=== PATIENT | male | born 1960 | race Caucasian/White ===

== ENCOUNTER 2018-06-22 14:19 | Outpatient (REF) | payer MEDICAID, SELFPAY ==
[2018-06-24 09:14] LABS: Hepatitis C Ab w Rflx HCV PCR Negative (NEGAT)
[2018-06-24 09:23] LABS: Hepatitis B Surface Ag Negative (NEGAT)
[2018-06-24 09:46] LABS: HIV-1/2 Ag & Ab Screen Negative (NEGAT)
== END 2018-06-22 14:39 ==
LOC: NCHCN 14:19
PROVIDERS: PCP Family Medicine; Visit Provider Family Medicine
DX: F11.20 Opioid dependence, uncomplicated (principal); Z11.59 Encounter for screening for other viral diseases; Z11.4 Encounter for screening for human immunodeficiency virus [HIV]; I10 Essential (primary) hypertension
CPT/HCPCS: 80048; 86803; 87340; 87389

== ENCOUNTER 2018-06-24 12:39 | Outpatient (REF) | payer MEDICAID, SELFPAY ==
[2018-06-24 14:07] LABS: Anion Gap 7.4 mmol/L (3-11); BUN 12 mg/dL (7-18); CO2 29.6 mmol/L (21.0-32.0); CREATININE 0.87 mg/dL (0.70-1.30); Calcium 8.8 mg/dL (8.5-10.1); Chloride 99 mmol/L (98-107); Glucose 97 mg/dL (70-100); Potassium 4.3 mmol/L (3.5-5.1); Sodium 136 mmol/L (136-145)
[2018-06-27 12:42] LABS: Hepatitis B Surface Ag Negative (NEGAT)
[2018-06-27 13:11] LABS: HIV-1/2 Ag & Ab Screen Negative (NEGAT); Hepatitis C Ab w Rflx HCV PCR Negative (NEGAT)
== END 2018-06-24 12:59 ==
LOC: NCHCN 12:39
PROVIDERS: PCP Family Medicine; Visit Provider Family Medicine
DX: I10 Essential (primary) hypertension (principal); F11.20 Opioid dependence, uncomplicated; Z11.4 Encounter for screening for human immunodeficiency virus [HIV]; Z11.59 Encounter for screening for other viral diseases
CPT/HCPCS: 80048; 86803; 87340; 87389

== ENCOUNTER 2018-06-27 01:26 | Outpatient (CLI) | payer MEDICAID, SELFPAY | END 2018-06-27 01:46 | PROVIDERS: PCP Family Medicine; Visit Provider Family Medicine | DX: R06.2 Wheezing (principal) ==

== ENCOUNTER 2019-05-03 02:34 | Outpatient (CLI) | payer MEDICAID, SELFPAY | END 2019-05-03 02:54 | PROVIDERS: PCP Family Medicine; Visit Provider Nurse Practitioner Family | DX: Z79.899 Other long term (current) drug therapy (principal) | CPT/HCPCS: 93005; 93010 ==

== ENCOUNTER 2019-05-12 16:12 | Outpatient (REF) | payer MEDICAID, SELFPAY ==
[2019-05-12 19:10] LABS: Hemoglobin A1C 5.5 % (4.5-6.2)
[2019-05-12 19:19] LABS: ALT 27 U/L (12-78); AST 18 U/L (15-37); Alkaline Phosphatase 86 U/L (46-116); Anion Gap 9.6 mmol/L (3-11); BUN 19 mg/dL (7-18); Bilirubin, Total 0.3 mg/dL (0.2-1.0); CO2 29.4 mmol/L (21.0-32.0); CREATININE 1.07 mg/dL (0.70-1.30); Calcium 9.1 mg/dL (8.5-10.1); Chloride 103 mmol/L (98-107); Glucose 92 mg/dL (70-100); Potassium 4.4 mmol/L (3.5-5.1); Sodium 142 mmol/L (136-145)
== END 2019-05-12 16:32 ==
LOC: NCHCN 16:12
PROVIDERS: PCP Family Medicine; Visit Provider Family Medicine
DX: R73.01 Impaired fasting glucose (principal); F10.21 Alcohol dependence, in remission
CPT/HCPCS: 80053; 83036

== ENCOUNTER 2021-04-11 08:03 | Outpatient (REF) | payer MEDICAID, SELFPAY ==
[2021-04-11 16:13] LABS: Anion Gap 9.5 mmol/L (3-11); BUN 13 mg/dL (7-18); CO2 27.5 mmol/L (21.0-32.0); CREATININE 0.9 mg/dL (0.70-1.30); Calcium 9.4 mg/dL (8.5-10.1); Chloride 103 mmol/L (98-107); Glucose 112 mg/dL (74-106); Potassium 4.4 mmol/L (3.5-5.1); Sodium 140 mmol/L (136-145)
[2021-04-11 19:39] LABS: Calculated LDL 192 mg/dL (<100); Cholesterol 278 mg/dL (<200); HDL Cholesterol 62 mg/dL (40-60); Triglyceride 121 mg/dL (<150)
== END 2021-04-11 08:04 | disposition home or self-care (01) ==
LOC: NCHCN 08:03
PROVIDERS: PCP Family Medicine; Visit Provider Family Medicine
DX: Z00.00 Encounter for general adult medical examination without abnormal findings (principal); I10 Essential (primary) hypertension
CPT/HCPCS: 80048; 80061

== ENCOUNTER 2022-03-12 07:53 | Outpatient (REF) | payer MEDICAID, SELFPAY ==
[2022-03-12 14:37] LABS: Hemoglobin A1C 5.7 % (<5.7)
[2022-03-12 14:47] LABS: ALT 23 U/L (16-63); AST 23 U/L (15-37); Albumin 3.6 g/dL (3.4-5.0); Alkaline Phosphatase 113 U/L (46-116); Anion Gap 8.4 mmol/L (3-11); BUN 21 mg/dL (7-18); Bilirubin, Total 0.3 mg/dL (0.2-1.0); CO2 27.6 mmol/L (21.0-32.0); CREATININE 0.9 mg/dL (0.70-1.30); Calcium 8.9 mg/dL (8.5-10.1); Calculated LDL 145 mg/dL (<100); Chloride 103 mmol/L (98-107); Cholesterol 221 mg/dL (<200); Glucose 114 mg/dL (74-106); HDL Cholesterol 56 mg/dL (40-60); Potassium 4.6 mmol/L (3.5-5.1); Sodium 139 mmol/L (136-145); Total Protein 7.3 g/dL (6.4-8.2); Triglyceride 100 mg/dL (<150)
== END 2022-03-12 07:54 | disposition home or self-care (01) ==
LOC: NCHCN 07:53
PROVIDERS: PCP Family Medicine; Visit Provider Family Medicine
DX: I10 Essential (primary) hypertension (principal); E88.09 Other disorders of plasma-protein metabolism, not elsewhere classified; E78.5 Hyperlipidemia, unspecified; R73.09 Other abnormal glucose
CPT/HCPCS: 80053; 80061; 83036

== ENCOUNTER 2023-06-25 15:59 | Outpatient (REF) | payer MEDICAID, SELFPAY ==
[2023-06-25 17:09] LABS: Anion Gap 6.7 mmol/L (3-11); BUN 19 mg/dL (7-18); CO2 29.3 mmol/L (21.0-32.0); Calcium 9.2 mg/dL (8.5-10.1); Calculated LDL 83 mg/dL (<100); Chloride 101 mmol/L (98-107); Cholesterol 162 mg/dL (<200); Estimated GFR 84.57 (mL/min/1.73m2); Glucose 115 mg/dL (74-106); HDL Cholesterol 71 mg/dL (40-60); Sodium 137 mmol/L (136-145); Triglyceride 44 mg/dL (<150)
== END 2023-06-25 16:00 | disposition home or self-care (01) ==
LOC: NCHCN 15:59
PROVIDERS: PCP Family Medicine; Visit Provider Family Medicine
DX: I10 Essential (primary) hypertension (principal); R79.89 Other specified abnormal findings of blood chemistry
CPT/HCPCS: 80048; 80061

== ENCOUNTER 2023-06-30 18:29 | Emergency (ER) | payer MEDICAID, SELFPAY ==
[2023-06-30] VITALS (8 sets, daily range): BP systolic 143–167; BP diastolic 79–93; PULSE 52–91; RESP 10–16; TEMP 36.9; O2SAT 95–96
--- NOTE | 2023-06-30 18:45 | DI.CT_ITS ---
Exam(s) CT ABDOMEN PELVIS W EXAM: CT ABDOMEN PELVIS W CLINICAL HISTORY: abd pain. TECHNIQUE: Imaging Protocol: Axial computed tomography images with coronal and sagittal reformatted images were created and reviewed CONTRAST MATERIAL: Intravenous: Omnipaque-350 100cc Oral: None COMPARISON: No exams were available for comparison FINDINGS: VISUALIZED LUNG BASES: No nodules nor pleural effusions evident. ABDOMEN: There is a prominent paraesophageal hiatal hernia. This measures approximately 5 x 5 cm. There is no ascites. LIVER: There are no focal hepatic lesions evident. No dilated intrahepatic ducts. GALLBLADDER/BILIARY: No obvious gallbladder pathology. CBD is not dilated. PANCREAS: No evidence of pancreatic mass nor dilatation of the pancreatic duct. SPLEEN: Spleen is not enlarged. No obvious intrasplenic lesions. Splenic and portal veins are paten t. ADRENALS: There are no significant adrenal masses. KIDNEYS:No cysts evident. No solid renal masses. No calculi nor hydronephrosis.. ABDOMINAL AORTA: Abdominal aorta is not enlarged. LYMPH NODES:There is no retroperitoneal nor paraaortic adenopathy. ABDOMINAL WALL: No evidence of significant anterior abdominal wall nor inguinal hernia. GI: There is no evidence of bowel obstruction, free air, nor abscess. PELVIS: GI: No evidence of appendicitis.No evidence of sigmoid diverticulitis. LYMPH NODES: There is no intrapelvic nor inguinal adenopathy. REPRODUCTIVE: Prostate not enlarged. URINARY BLADDER: No calculi nor obvious masses evident OSSEOUS: No fractures and no significant osseous lesions. IMPRESSION: 1. No acute findings in the abdomen and pelvis. 2. Moderate-large size para esophageal hiatal hernia noted. RADIATION DOSE DELIVERED: 820.26mGy.cm Total DLP DATA REPOSITORY: All CT scans at this facility are submitted to the National Radiology Data Registry (NRDR) Dose Index Registry (DIR) with the [employer] (ACR). RADIATION OPTIMIZATION: All CT scans at this facility use at least one of these dose optimization te chniques: automated exposure control; mA and/or kV adjustment per patient size (includes targeted exa ms where dose is matched to clinical indication); or iterative reconstruction.
--- NOTE | 2023-06-30 18:45 | RT.EKG_ITS ---
APPROVED REPORT Exam: Resting ECG Reason for Exam: abdominal pain Patient Location: E HR:63 bpm ECG Measurements Heart Rate 63 AXIS OR 171 P 61 QRSd 150 QRS -20 QT 483 T 88 QTc 493 Conclusion Sinus rhythm...normal P axis, V-rate 60- 99 Left bundle branch block...QRSd>120, broad/notched R ST elevation secondary to IVCD...Multiple VCG criteria Normal sinus rhythm at a rate of 63 with left bundle branch block pattern. Not meeting Sgarbossa cri tercandis nor modified Ko criteria for ischemia. No prior for comparison. No acute injury pattern.
[2023-06-30 19:25] LABS: Abs Immature Grans 0.02 10^3/uL (0.0-0.06); Absolute Basophil Count 0.03 10^3/uL (0.0-0.2); Absolute Eosinophil Count 0.04 10^3/uL (0.0-0.7); Absolute Lymphocyte Count 1.67 10^3/uL (1.2-3.4); Absolute Monocyte Count 0.54 10^3/uL (0.1-0.8); Absolute Neutrophil Count 4.61 10^3/uL (1.2-6.7); Basophils % 0.4; Eosinophils % 0.6; HCT 36.6 % (40.0-50.0); HGB 12.1 g/dL (13.5-17.5); Immature Grans % 0.3; Lymphocytes % 24.2; MCH 30.2 pg (27.0-33.0); MCHC 33.1 % (32.0-36.0); MCV 91 fL (80-95); MPV 8.1 fL (8.0-11.0); Monocytes % 7.8; Neutrophils % 66.7; Platelet Count 277 10^3/uL (130-400); RBC 4.01 10^6/uL (4.36-5.78); RDW 13.1 % (11.8-14.1); RDW-SD 44.3 fL; WBC 6.91 10^3/uL (4.4-10.8)
[2023-06-30 19:37] LABS: ALT 31 U/L (16-63); AST 61 U/L (15-37); Albumin 3.8 g/dL (3.4-5.0); Alkaline Phosphatase 104 U/L (46-116); Anion Gap 7.4 mmol/L (3-11); BUN 14 mg/dL (7-18); Bilirubin, Total 0.6 mg/dL (0.2-1.0); CO2 28.6 mmol/L (21.0-32.0); Chloride 103 mmol/L (98-107); Estimated GFR 84.57 (mL/min/1.73m2); Glucose 105 mg/dL (74-106); Lipase 21 U/L (16-77); Potassium 3.9 mmol/L (3.5-5.1); Sodium 139 mmol/L (136-145); Total Protein 7.3 g/dL (6.4-8.2)
--- NOTE | 2023-06-30 19:42 | ED.GENADUL_ITS ---
Discharge Plan Disposition Patient Disposition: Home Condition: Stable Discharge Details Clinical Impression: Abdominal pain Primary Care Provider: Binh Herron ED Provider: Catherine Hadley Home Meds and New Rx's Prescriptions: New Relistor 150 mg tablet 450 mg PO DAILY Qty: 9 0RF Continued polyethylene glycol 3350 17 gram/dose powder 238 g PO ONCE Qty: 238 0RF Rx Instructions: take per colonoscopy instructions bisacodyl [Dulcolax (bisacodyl)] 5 mg tablet,delayed release (DR/EC) 5 mg PO ONCE Qty: 4 0RF Rx Instructions: take per colonoscopy instructions clotrimazole 1 % cream 1 applic topical BID atorvastatin 40 mg tablet 40 mg PO QHS lisinopril 10 mg tablet 10 mg PO DAILY propranolol 120 mg capsule,extended release 24 hr 120 mg PO QHS methadone 10 mg/5 mL solution 115 mg PO DAILY capsaicin 0.1 % cream 1 applic topical BID Rx Instructions: do not wash area for at least 30 min after application albuterol sulfate [ProAir HFA] 90 mcg/actuation HFA aerosol inhaler 2 puff inhalation Q6H PRN peg 3350-electrolytes [Golytely] 4,000 ML recon soln 4,000 ml PO ONCE Qty: 1 0RF Discharge Instructions Instructions: Abdominal Pain (ED) Additional Instructions: Start taking the Relistor if you continue to have constipation Recommend also taking MiraLAX daily or Dulcolax Recommend outpatient colonoscopy return earlier with new or worsening Referrals: Binh Herron [Primary Care Provider] - Medical Decision Making 63-year-old male presenting with abdominal pain, given age and complaint I did order CT abdomen and pelvis and diagnostic blood work, diagnostic blood work does not show significant acute abnormality, CT abdomen and pelvis shows paraesophageal hernia without acute abnormality, there is stool in the rectum I did go in to perform a rectal exam and patient was able to successfully have a bowel movement, I did perform a digital rectal exam and there is no remaining stool in the vault, patient feels improved He was given Relistor at home as needed for constipation He is encouraged to follow-up for an outpatient colonoscopy and discharged home in stable condition with stable vitals HPI General Date/Time Provider Initiated Documentation: 06/30/23 18:44 . HPI Narrative: This 63-year-old male presents with reports of abdominal pain for the past diya ral days, decreased bowel movements, denies any chest pain or shortness of breath, having nausea. Denies any fever or chills. Denies any blood in stool. Does take methadone daily. Denies any change in urination. Related Data Home Medications Medication Instructions Recorded Confirmed peg 3350-electrolytes 236 4,000 ml PO ONCE ##1 03/05/16 02/12/23 gram-22.74 gram-6.74 gram-5.86 gram solution (Golytely) albuterol sulfate 90 mcg/actuation 2 puff inhalation Q6H PRN 07/03/22 02/12/23 aerosol inhaler (ProAir HFA) atorvastatin 40 mg tablet 40 mg PO QHS 07/03/22 02/12/23 capsaicin 0.1 % topical cream 1 applic topical BID 07/03/22 02/12/23 clotrimazole 1 % topical cream 1 applic topical BID 07/03/22 02/12/23 lisinopril 10 mg tablet 10 mg PO DAILY 07/03/22 02/12/23 methadone 10 mg/5 mL oral solution 115 mg PO DAILY 07/03/22 02/12/23 propranolol 120 mg capsule,24 120 mg PO QHS 07/03/22 02/12/23 hr,extended release bisacodyl 5 mg tablet,delayed 5 mg PO ONCE colonscopy bowel prep 01/28/23 02/12/23 release (Dulcolax (bisacodyl)) #4 tabs polyethylene glycol 3350 17 238 g PO ONCE colonoscopy prep 01/28/23 02/12/23 gram/dose oral powder #238 grams methylnaltrexone 150 mg tablet 450 mg PO DAILY #9 tabs 06/30/23 (Relistor) Previous Rx's Medication Instructions Recorded peg 3350-electrolytes 236 4,000 ml PO ONCE ##1 03/05/16 gram-22.74 gram-6.74 gram-5.86 gram solution (Golytely) bisacodyl 5 mg tablet,delayed 5 mg PO ONCE colonscopy bowel prep 01/28/23 release (Dulcolax (bisacodyl)) #4 tabs polyethylene glycol 3350 17 238 g PO ONCE colonoscopy prep 01/28/23 gram/dose oral powder #238 grams methylnaltrexone 150 mg tablet 450 mg PO DAILY #9 tabs 06/30/23 (Relistor) Allergies Allergy/AdvReac Type Severity Reaction Status Date / Time codeine [Codeine] AdvReac Nausea Unverified 03/05/16 18:17 General Stated Complaint: Abd Prob JOSIAH: 3 PFSH All Active Problems (Updated 06/30/23 @ 20:49 by JUAN M Fontana) Abdominal pain (Acute) Hypertension (Chronic) Anxiety disorder (Acute) Hypoalbuminemia (Acute) Balanitis (Acute) Medical History Alcohol dependence, in remission Colonic diverticular disease Generalized osteoarthritis of hand Hyperlipidemia Opioid dependence Smoker Social History (Updated 01/29/23 @ 06:57 by JUAN M Sneed) Smoking/Tobacco Use Status: Current every day Smoking risk assessment performed?: Yes Alcohol Intake: current Alcohol Intake frequency: a few times a week Alcohol type: beer Drug use: Daily Substance use type: marijuana Course Vital Signs Vital signs: Vital Signs Temperature 36.9 C 06/30/23 18:32 Pulse 91 H 06/30/23 18:32 Respiratory Rate 16 06/30/23 18:32 Blood Pressure 167/90 H 06/30/23 18:32 Pulse Oximetry 96 06/30/23 18:32 Temperature 36.9 C 06/30/23 18:32 Temperature Source Skin 06/30/23 18:32 Pulse 67 06/30/23 19:25 Pulse 60 06/30/23 19:25 Respiratory Rate 10 L 06/30/23 19:25 Respiratory Effort Normal 06/30/23 19:25 Blood Pressure 151/93 H 06/30/23 19:25 Blood Pressure Mean 109 06/30/23 19:25 Blood Pressure Position Sitting 06/30/23 18:32 Pulse Oximetry 96 06/30/23 18:32 Oxygen Delivery Method Room Air 06/30/23 18:32 Oxygen Flow Rate 0 06/30/23 18:32 Pain Level 4 06/30/23 18:32 Lab/Test Results Lab/Test Results: Laboratory Tests Range/Units 06/30/23 06/30/23 19:15 19:15 WBC (4.4-10.8) 10^3/uL 6.91 RBC (4.36-5.78) 10^6/uL 4.01 L Hgb (13.5-17.5) g/dL 12.1 L Hct (40.0-50.0) % 36.6 L MCV (80-95) fL 91 MCH (27.0-33.0) pg 30.2 MCHC (32.0-36.0) % 33.1 RDW (11.8-14.1) % 13.1 Plt Count (130-400) 10^3/uL 277 MPV (8.0-11.0) fL 8.1 Immature Gran % 0.3 Neutrophils % 66.7 Lymphocytes % 24.2 Monocytes % 7.8 Eosinophils % 0.6 Basophils % 0.4 Nucleated RBC % (0.0-0.3) % 0.0 Absolute Neutrophils (1.2-6.7) 10^3/uL 4.61 Absolute Lymphocytes (1.2-3.4) 10^3/uL 1.67 Absolute Monocytes (0.1-0.8) 10^3/uL 0.54 Absolute Eosinophils (0.0-0.7) 10^3/uL 0.04 Absolute Basophils (0.0-0.2) 10^3/uL 0.03 Sodium (136-145) mmol/L 139 Potassium (3.5-5.1) mmol/L 3.9 Chloride (98-107) mmol/L 103 Carbon Dioxide (21.0-32.0) mmol/L 28.6 Anion Gap (3-11) mmol/L 7.4 BUN (7-18) mg/dL 14 Creatinine (0.70-1.30) mg/dL 1.0 Est GFR (CKD-EPI 2020) (mL/min/1.73m2) 84.57 Glucose (74-106) mg/dL 105 Total Bilirubin (0.2-1.0) mg/dL 0.6 AST (15-37) U/L 61 H ALT (16-63) U/L 31 Alkaline Phosphatase (46-116) U/L 104 Total Protein (6.4-8.2) g/dL 7.3 Albumin (3.4-5.0) g/dL 3.8 Lipase (16-77) U/L 21
[2023-06-30 19:47] LABS: Calcium 9.8 mg/dL (8.5-10.1)
[2023-06-30] MEDS: Omnipaque 350 MG/ML 100 ML BTL IJ (19:49)
[2023-06-30] MEDS: Normal Saline - Diluent 50 ML VIAL IJ (19:50)
--- NOTE | 2023-06-30 20:37 | DI.VRAD_ITS ---
PROCEDURE INFORMATION: Exam: CT Abdomen And Pelvis With Contrast Exam date and time: 06/30/2023 7:55 PM Age: 63 years old Clinical indication: Other: Abd pain TECHNIQUE: Imaging protocol: Computed tomography of the abdomen and pelvis with contrast. Contrast material: 350; Contrast volume: 100 ml; Contrast route: INTRAVENOUS (IV); COMPARISON: No relevant prior studies available. FINDINGS: Lungs: Mild subpleural scarring in the posterior right lung base. Diaphragm: Moderate paraesophageal hiatal hernia. Liver: Normal. No mass. Gallbladder and bile ducts: Normal. No calcified stones. No ductal dilation. Pancreas: Normal. No ductal dilation. Spleen: Normal. No splenomegaly. Adrenal glands: Normal. No mass. Kidneys and ureters: Normal. No hydronephrosis. Stomach and bowel: Unremarkable. No obstruction. No mucosal thickening. Appendix: No evidence of appendicitis. Intraperitoneal space: Unremarkable. No free air. No significant fluid collection. Vasculature: Mild calcified atherosclerotic disease. No aneurysm. Lymph nodes: Unremarkable. No enlarged lymph nodes. Urinary bladder: Unremarkable as visualized. Reproductive: Unremarkable as visualized. Bones/joints: Lower lumbar facet arthropathy. Mild L5-S1 degenerative disc disease. No acute fracture or focal suspicious osseous lesion. Soft tissues: Unremarkable. IMPRESSION: 1. No acute abnormality. 2. Moderate paraesophageal hiatal hernia. Dictated and Authenticated by: Gaurang Kang MD. Ordering:SAMANTHA Alexander MD
== END 2023-06-30 20:59 | disposition home or self-care (01) ==
PROVIDERS: Emergency Provider Physician Assistant; PCP Family Medicine
DX: R10.9 Unspecified abdominal pain (principal); K44.9 Diaphragmatic hernia without obstruction or gangrene; I10 Essential (primary) hypertension; Z79.899 Other long term (current) drug therapy
CPT/HCPCS: 36415; 80053; 83690; 93005; 99285; 74177; 85025; 93010; 99284; J3490

== ENCOUNTER → 2023-07-28 09:27 | Outpatient (CLI) | payer MEDICAID, SELFPAY ==
--- NOTE | 2023-07-28 | DI.CTLCSR_ITS ---
Exam(s) CT CHEST LUNG CANCER SCREEN EXAM: CT CHEST LUNG CANCER SCREEN CLINICAL HISTORY: [facility], Z00.00, SCREENING FOR LUNG CANCER, CURRENT SMOKER TECHNIQUE: Imaging Protocol: Axial computed tomography images with coronal and sagittal reformatted images were created and reviewed. Low dose screening protocol. COMPARISON: CR ABD FLAT UPRIGHT PA CHEST from 03/05/[address] ABDOMEN PELVIS W from 06/30/2023 FINDINGS: Tracheobronchial tree: No bronchiectasis or mucus plugging.. Mediastinum and Flor: No dominant adenopathy or fluid collection. Pulmonary parenchyma: No consolidation or dominant measurable mass. Mild emphysematous changes. Lung Nodules: 3 millimeter nodule left upper lobe. 3 millimeter nodule posterior right lower lobe. Pleura: No effusion. No pneumothorax. Heart: The heart is not dilated. Mild coronary artery calcifications are seen. Aorta: Thoracic aorta non-dilated. Upper abdomen: Moderate size hiatal hernia. Bones: Unremarkable for age. Soft Tissues: Unremarkable. IMPRESSION: No suspicious pulmonary nodules. Lung RADS Cat 2 - Benign Appearance / Behavior: Nodules with a very low likelihood of becoming a clin ically active cancer due to size or lack of growth Lung-RADS 1.0 CATEGORIES: Category 0 - Prior chest CT exam(s) being located for comparison. Category 1 - Annual screening in 12 months. No nodules or definitely benign nodules. Category 2 - Annual screening in 12 months. Benign appearance. Nodules with low likelihood of becomin g active cancer. Category 3 - 6-month follow-up. Probably benign. Short-term follow-up suggested. Nodules with low lik elihood of becoming active cancer. Category 4A - 3-month follow-up and CT/PET if >8 mm in size. Suspicious finding. Findings which requi re additional testing. Category 4B - Findings which require additional testing and tissue sampling. Category 4X - Category 3 or 4 nodules with additional features or imaging findings that increases the suspicion of malignancy. Modifier S- Potentially clinically significant findings (non lung cancer) RADIATION DOSE DELIVERED: Total DLP DATA REPOSITORY: All CT scans at this facility are submitted to the National Radiology Data Registry (NRDR) Dose Index Registry (DIR) with the [employer] (ACR). RADIATION OPTIMIZATION: All CT scans at this facility use at least one of these dose optimization te chniques: automated exposure control; mA and/or kV adjustment per patient size (includes targeted exa ms where dose is matched to clinical indication); or iterative reconstruction.
== END ==
PROVIDERS: PCP Family Medicine; Visit Provider Family Medicine
DX: Z12.2 Encounter for screening for malignant neoplasm of respiratory organs (principal); F17.210 Nicotine dependence, cigarettes, uncomplicated
CPT/HCPCS: 71271

== ENCOUNTER 2023-08-10 18:25 | Outpatient (REF) | payer MEDICAID, SELFPAY ==
[2023-08-10 19:17] LABS: Abs Immature Grans 0.01 10^3/uL (0.0-0.06); Absolute Basophil Count 0.04 10^3/uL (0.0-0.2); Absolute Eosinophil Count 0.11 10^3/uL (0.0-0.7); Absolute Lymphocyte Count 2.78 10^3/uL (1.2-3.4); Absolute Monocyte Count 0.54 10^3/uL (0.1-0.8); Absolute Neutrophil Count 2.83 10^3/uL (1.2-6.7); Basophils % 0.6; Eosinophils % 1.7; HCT 37.6 % (40.0-50.0); HGB 12.5 g/dL (13.5-17.5); Immature Grans % 0.2; Lymphocytes % 44.1; MCH 30.7 pg (27.0-33.0); MCHC 33.2 % (32.0-36.0); MCV 92 fL (80-95); MPV 8.5 fL (8.0-11.0); Monocytes % 8.6; Neutrophils % 44.8; Platelet Count 336 10^3/uL (130-400); RBC 4.07 10^6/uL (4.36-5.78); RDW 13.2 % (11.8-14.1); RDW-SD 44.8 fL; WBC 6.31 10^3/uL (4.4-10.8)
[2023-08-10 19:28] LABS: Iron 57 ug/dL (65-175); Total Iron Binding Capacity 310 ug/dL (250-450); Transferrin Sat 18 % (20-55)
[2023-08-10 19:55] LABS: ALT 25 U/L (16-63); AST 19 U/L (15-37); Albumin 3.5 g/dL (3.4-5.0); Alkaline Phosphatase 99 U/L (46-116); Anion Gap 8.6 mmol/L (3-11); BUN 13 mg/dL (7-18); Bilirubin, Total 0.2 mg/dL (0.2-1.0); CO2 28.4 mmol/L (21.0-32.0); CREATININE 0.9 mg/dL (0.70-1.30); Calcium 9.2 mg/dL (8.5-10.1); Chloride 102 mmol/L (98-107); Estimated GFR 95.97 (mL/min/1.73m2); Glucose 116 mg/dL (74-106); Sodium 139 mmol/L (136-145); Total Protein 6.8 g/dL (6.4-8.2); Vitamin B12 372 pg/mL (193-986)
[2023-08-10 20:04] LABS: C-Reactive Protein 0.16 mg/dL (0.0-0.3)
[2023-08-12 08:46] LABS: HBs Antibody, Quant <3.1 mIU/mL (See Note); Hepatitis B Surface Ab Negative (See Note)
[2023-08-12 09:07] LABS: Hepatitis B Surface Ag Negative (Negative)
[2023-08-12 09:21] LABS: HIV-1/2 Ag & Ab Screen Negative (Negative)
[2023-08-12 09:38] LABS: Hepatitis C Ab w Rflx HCV PCR Negative (Negative)
[2023-08-12 09:44] LABS: Hep B Core Antibody Negative (Negative)
== END 2023-08-10 18:26 | disposition home or self-care (01) ==
LOC: NCHCN 18:25
PROVIDERS: Visit Provider Family Medicine
DX: R63.4 Abnormal weight loss (principal)
CPT/HCPCS: 80053; 86704; 86706; 86803; 87340; 87389; 82607; 83540; 83550; 85025; 86140

== ENCOUNTER 2024-04-03 15:28 | Outpatient (REF) | payer MEDICAID, SELFPAY ==
[2024-04-03 16:00] LABS: Anion Gap 8.2 mmol/L (3-11); BUN 10 mg/dL (7-18); CO2 28.8 mmol/L (21.0-32.0); Calcium 9.1 mg/dL (8.5-10.1); Chloride 100 mmol/L (98-107); Estimated GFR 84.05 (mL/min/1.73m2); Glucose 136 mg/dL (74-106); Potassium 4.2 mmol/L (3.5-5.1); Sodium 137 mmol/L (136-145)
== END 2024-04-03 15:29 | disposition home or self-care (01) ==
LOC: NCHCN 15:28
PROVIDERS: PCP Student in an Organized Health Care Education/Training Program; Visit Provider Student in an Organized Health Care Education/Training Program
DX: I10 Essential (primary) hypertension (principal)
CPT/HCPCS: 80048

== ENCOUNTER 2024-05-20 18:13 | Emergency (ER) | payer MEDICAID, SELFPAY ==
[2024-05-20] VITALS (26 sets, daily range): BP systolic 96–149; BP diastolic 54–103; PULSE 53–97; RESP 10–27; TEMP 35.4; O2SAT 97
--- NOTE | 2024-05-20 18:30 | DI.CT_ITS ---
Exam(s) CT HEAD CERVICAL SPINE WO EXAM: CT HEAD CERVICAL SPINE WO CLINICAL HISTORY: trauma. TECHNIQUE: Imaging Protocol: Axial computed tomography images with coronal and sagittal reformatted images were created and reviewed COMPARISON: No exams were available for comparison FINDINGS: CT Head: Ventricles and Extra axial spaces: Normal in size and morphology for the patient's age. Hemorrhage: None. Cerebral parenchyma: There is no evidence of an acute territorial infarct. No mass effect is identif ied. Midline shift: None. Brainstem/Cerebellum: Normal. Calvarium: Normal. Visualized Paranasal sinuses/Mastoids: Clear. Soft Tissues: Unremarkable. CT Cervical Spine: Bones: There is an acute comminuted fracture of the medial aspect of the right clavicle. There is an associated hematoma involving the right sternocleidomastoid muscle distally. There are age-appropri ate degenerative changes seen in the cervical spine. Soft Tissues: Unremarkable. Lung Apices: Clear. IMPRESSION: 1. No acute intracranial process. 2. No acute fracture or subluxation in the cervical spine. 3. Fracture of the medial right clavicle with associated soft tissue swelling/hematoma. RADIATION DOSE DELIVERED: Total DLP DATA REPOSITORY: All CT scans at this facility are submitted to the National Radiology Data Registry (NRDR) Dose Index Registry (DIR) with the [employer] (ACR). RADIATION OPTIMIZATION: All CT scans at this facility use at least one of these dose optimization te chniques: automated exposure control; mA and/or kV adjustment per patient size (includes targeted exa ms where dose is matched to clinical indication); or iterative reconstruction.
--- NOTE | 2024-05-20 18:33 | DI.CT_ITS ---
Exam(s) CT CHEST/ABD/PEL W EXAM: CT CHEST/ABD/PEL W CLINICAL HISTORY: trauma TECHNIQUE: Imaging Protocol: Axial computed tomography images with coronal and sagittal reformatted images were created and reviewed CONTRAST MATERIAL: Intravenous: Omnipaque 350 contrast volume:100 mL Oral: No COMPARISON: CT CT CHEST LUNG CANCER SCREEN from 07/28/2023 FINDINGS: CHEST: Tracheobronchial tree: Patent where visualized. Pulmonary parenchyma: No consolidation or dominant measurable mass. There is scarring in the lung bas es. No focal consolidating infiltrates are present. Visualized thyroid gland: Unremarkable. Mediastinum and Flor: No dominant adenopathy or fluid collection. The esophagus is unremarkable. The re is a large hiatal hernia. Pleura: No effusion or pneumothorax. Heart: The heart is not dilated. Coronary artery calcifications are present. No pericardial effusion . Pulmonary arteries: There is no pulmonary embolus to the segmental level. Aorta: Thoracic aorta non-dilated. No evidence of dissection. Atherosclerotic calcification is prese nt. Lymph nodes: Within normal limits. Soft tissues: Mild gynecomastia. Bones:Within normal limits for the patient's age. There is an acute fracture of the medial right cla vicle with associated hematoma involving the right sternocleidomastoid muscle. ABDOMEN: Liver: Normal density. No measurable mass. Portal, Superior Mesenteric, and Splenic Veins: Unremarkable. Gallbladder and Biliary Tract: No radiodense calculus or dilation. Pancreas: Normal density, no abnormal calcifications or inflammatory process. Spleen: Normal. Adrenals: No masses seen. Kidneys: Normal size, contour and axis. No radiodense stones or obstructive uropathy. No masses seen. Abdominal Aorta: Abdominal portion non-dilated. Atherosclerotic calcification is present. Bowel: There is diverticulosis of the colon without evidence of acute diverticulitis. No evidence of bowel obstruction or bowel wall thickening. No evidence of appendicitis. Peritoneal Cavity: No ascites, collection or mesenteric inflammatory response. No free air. Lymph Nodes: Within normal limits. Bones: Within normal limits for the patient's age. Soft Tissues: Unremarkable. PELVIS: Bladder: Symmetric distention, no gross wall thickening. Reproductive Organs: Unremarkable as visualized. Lymph Nodes: Within normal limits. Bones: Within normal limits. IMPRESSION: 1. No acute pulmonary process. 2. Comminuted fracture of the medial right clavicle with associated hematoma in the adjacent right st ernocleidomastoid muscle. 3. No acute abdominal or pelvic organ injury. RADIATION DOSE DELIVERED: Total DLP DATA REPOSITORY: All CT scans at this facility are submitted to the National Radiology Data Registry (NRDR) Dose Index Registry (DIR) with the [employer] (ACR). RADIATION OPTIMIZATION: All CT scans at this facility use at least one of these dose optimization te chniques: automated exposure control; mA and/or kV adjustment per patient size (includes targeted exa ms where dose is matched to clinical indication); or iterative reconstruction.
[2024-05-20 19:04] LABS: Abs Immature Grans 0.04 10^3/uL (0.0-0.06); Absolute Basophil Count 0.03 10^3/uL (0.0-0.2); Absolute Eosinophil Count 0.02 10^3/uL (0.0-0.7); Absolute Lymphocyte Count 0.96 10^3/uL (1.2-3.4); Absolute Monocyte Count 0.43 10^3/uL (0.1-0.8); Absolute Neutrophil Count 9.45 10^3/uL (1.2-6.7); Basophils % 0.3 %; Eosinophils % 0.2 %; HCT 38.3 % (40.0-50.0); HGB 12.5 g/dL (13.5-17.5); Immature Grans % 0.4 %; Lymphocytes % 8.8 %; MCH 30.7 pg (27.0-33.0); MCHC 32.6 % (32.0-36.0); MCV 94 fL (80-95); MPV 8.1 fL (8.0-11.0); Monocytes % 3.9 %; Neutrophils % 86.4 %; Platelet Count 271 10^3/uL (130-400); RBC 4.07 10^6/uL (4.36-5.78); RDW-SD 44.8 fL; WBC 10.94 10^3/uL (4.4-10.8)
[2024-05-20] MEDS: Normal Saline - Diluent 50 ML VIAL IJ (19:12)
[2024-05-20] MEDS: Omnipaque 350 MG/ML 100 ML BTL IJ (19:13)
[2024-05-20 19:20] LABS: ALT 26 U/L (16-63); AST 22 U/L (15-37); Albumin 3.7 g/dL (3.4-5.0); Alkaline Phosphatase 96 U/L (46-116); Anion Gap 7.4 mmol/L (3-11); BUN 17 mg/dL (7-18); CO2 29.6 mmol/L (21.0-32.0); Calcium 8.7 mg/dL (8.5-10.1); Chloride 99 mmol/L (98-107); Estimated GFR 84.05 (mL/min/1.73m2); Glucose 117 mg/dL (74-106); Magnesium 1.8 mg/dL (1.8-2.4); Potassium 3.6 mmol/L (3.5-5.1); Sodium 136 mmol/L (136-145); Total Protein 7.2 g/dL (6.4-8.2)
--- NOTE | 2024-05-20 19:31 | DI.RAD_ITS ---
Exam(s) XR ANKLE RT COMPLETE XR FOOT RT COMPLETE EXAM: XR FOOT RT COMPLETE and XR ankle RT complete CLINICAL HISTORY: trauma, lateral foot pain. TECHNIQUE: 2D digital imaging was performed of the right ankle and foot. Six images were obtained. AP, oblique and lateral views were obtained. COMPARISON: CR,XR XR ANKLE RT COMPLETE from 05/20/2024 FINDINGS: BONES: There is a lucency seen through the posterior aspect of the calcaneus on the lateral view. Th e findings are suspicious for fracture of indeterminate acuity as there are sclerotic margins seen ab out the lucency. No bony destructive lesion is seen. No other evidence of a fracture or dislocation. JOINTS: No dislocation present. SOFT TISSUE: Normal. IMPRESSION: Lucency seen through the posterior calcaneus suspicious for fracture of indeterminate acuity. A CT s can of the calcaneus may be obtained for further evaluation. DATA REPOSITORY: RADIATION DOSE DELIVERED:
--- NOTE | 2024-05-20 19:32 | DI.RAD_ITS ---
Exam(s) XR ELBOW RT LIMITED EXAM: XR ELBOW RT LIMITED CLINICAL HISTORY: fall medial pain. TECHNIQUE: 2D digital imaging was performed of the left elbow. Two images were obtained. AP and la teral views were obtained. COMPARISON: No exams were available for comparison FINDINGS: BONES: There is an oblique lucency projected over the medial epicondyle. It does not appear to exten d to the cortical surface and may represent an artifact. The bones are otherwise unremarkable. No b darleen destructive lesion is seen. JOINTS: The elbow is normally aligned. No joint effusion is seen. SOFT TISSUE: Normal. IMPRESSION: Lucency over the medial epicondyle of the humerus on the AP view only which likely reflects an artifa ct. Please correlate with the patient's physical exam. An oblique view was not obtained. A complet e right elbow series or CT scan may be considered for further evaluation. DATA REPOSITORY: RADIATION DOSE DELIVERED:
[2024-05-20] MEDS: ACETAMINOPHEN 1,000 MG/100 ML BTL 400 MG IVPB (19:37)
[2024-05-20] MEDS: Normal Saline Flush 10 ML SYR IVP (20:02)
--- NOTE | 2024-05-20 20:27 | DI.VRAD_ITS ---
PROCEDURE INFORMATION: Exam: CT Head Without Contrast Exam date and time: 05/20/2024 7:10 PM Age: 64 years old Clinical indication: Other: Trauma TECHNIQUE: Imaging protocol: Computed tomography of the head without contrast. COMPARISON: No relevant prior studies available. FINDINGS: Brain: Normal. No hemorrhage. Unremarkable white matter. No mass effect. Cerebral ventricles: No ventriculomegaly. Paranasal sinuses: Visualized sinuses are unremarkable. No fluid levels. Mastoid air cells: Visualized mastoid air cells are well aerated. Bones: Unremarkable. No acute fracture. Soft tissues: Unremarkable. IMPRESSION: No acute intracranial abnormality. PROCEDURE INFORMATION: Exam: CT Cervical Spine Without Contrast Exam date and time: 05/20/2024 7:10 PM Age: 64 years old Clinical indication: Other: Trauma TECHNIQUE: Imaging protocol: Computed tomography of the cervical spine without contrast. COMPARISON: CT CHEST LUNG CANCER SCREEN 07/28/2023 8:52 AM FINDINGS: Bones: Severe multilevel bilateral facet arthropathy throughout the cervical spine. Severe degenerative changes of the atlantodental joint. Grade 1 anterolisthesis C5. No acute fracture within the cervical spine. Partially visualized fracture of the medial end of the right clavicle. Pharynx: Numerous bilateral tonsilliths noted. Lungs: Lung apices are normal. Soft tissues: Moderate soft tissue swelling/hematoma about the proximal end of the right clavicle. IMPRESSION: 1. No acute cervical spine fracture. Significant multilevel degenerative changes noted 2. Partially visualized fracture of the proximal end of the right clavicle Dictated and Authenticated by: Earle Macdonald MD. Ordering:MARILYN Briggs MD
--- NOTE | 2024-05-20 20:44 | DI.VRAD_ITS ---
PROCEDURE INFORMATION: Exam: CT Chest With Contrast; Diagnostic Exam date and time: 05/20/2024 7:15 PM Age: 64 years old Clinical indication: Injury or trauma; Fall; Generalized; Blunt trauma (contusions or hematomas); Injury date: 05/20/24; Patient HX: Patient fell from ladder. Trauma TECHNIQUE: Imaging protocol: Diagnostic computed tomography of the chest with contrast. 3D rendering (Not supervised by radiologist): MIP and/or 3D reconstructed images were created by the technologist. Radiation optimization: All CT scans at this facility the use at least one of these dose optimization techniques: automated exposure control; mA and/or kV adjustment per patient size (includes targeted exams where dose is matched to clinical indication); or iterative reconstruction. Contrast material: [id number]; Contrast volume: 100 ml; Contrast route: INTRAVENOUS (IV); COMPARISON: CT CHEST LUNG CANCER SCREEN 28/07/2023 08:52 FINDINGS: Lungs: The visualized lung cronin show mild bibasilar atelectasis. Pleural spaces: Unremarkable. No pneumothorax. No pleural effusion. Heart: The heart is normal in size. There are no pericardial fluid collections. Esophagus: No esophageal thickening. Mediastinal space: There are no enlarged mediastinal lymph nodes or masses. Lymph nodes: There are no enlarged hilar lymph nodes. Vasculature: There is no thoracic aortic aneurysm or dissection. Diaphragm: There is a moderate-sized hiatal hernia. Liver: No enhancing masses are seen. Bones/joints: There is a minimally displaced complete fracture -the medial right clavicle. The joints maintain anatomic alignment. Soft tissues: Unremarkable. IMPRESSION: A minimally displaced complete fracture of the medial right clavicle. PROCEDURE INFORMATION: Exam: CT Abdomen And Pelvis With Contrast Exam date and time: 05/20/2024 7:15 PM Age: 64 years old Clinical indication: Injury or trauma; Fall; Generalized; Blunt trauma (contusions or hematomas); Injury date: 05/20/24; Patient HX: Patient fell from ladder. Trauma TECHNIQUE: Imaging protocol: Computed tomography of the abdomen and pelvis with contrast. 3D rendering (Not supervised by radiologist): MIP and/or 3D reconstructed images were created by the technologist. Radiation optimization: All CT scans at this facility use at least one of these dose optimization techniques: automated exposure control; mA and/or kV adjustment per patient size (includes targeted exams where dose is matched to clinical indication); or iterative reconstruction. Contrast material: [id number]; Contrast volume: 100 ml; Contrast route: INTRAVENOUS (IV); COMPARISON: CT ABDOMEN PELVIS W 30/06/2023 19:55 FINDINGS: Lungs: No consolidation in the visualized lung bases. Liver: No hepatomegaly. There are no enhancing liver masses. Gallbladder and biliary ducts: No calcified stones. No ductal dilation. Pancreas: Normal in size and homogeneous enhancement. No ductal dilation. Spleen: Normal. No splenomegaly. Adrenal glands: Normal. No mass. Kidneys and ureters: There is no hydronephrosis. No renal or obstructing ureteral calculi. Stomach and bowel: Moderate diverticulosis is present in the left colon without acute diverticulitis. There is no evidence of small bowel or colonic obstruction. Appendix: The appendix is not identified. There are no pericecal inflammatory changes. Intraperitoneal space: No acute injury to abdominopelvic organs. Vasculature: There is mild atherosclerotic calcification of the abdominal aorta and its branches without aneurysm. Lymph nodes: No enlarged retroperitoneal or mesenteric lymph nodes. Urinary bladder: The bladder shows a normal contour and is free of calcific opacities. Reproductive: Unremarkable as visualized. Bones/joints: No acute fracture. Soft tissues: Normal. IMPRESSION: 1. No acute injury to abdominopelvic organs. 2. Moderate diverticulosis is present in the left colon without acute diverticulitis. Dictated and Authenticated by: Armand Osorio MD. Ordering:MARILYN Briggs MD
--- NOTE | 2024-05-20 20:54 | DI.VRAD_ITS ---
PROCEDURE INFORMATION: Exam: XR Right Elbow Exam date and time: 05/20/2024 7:31 PM Age: 64 years old Clinical indication: Other: Fall medial pain TECHNIQUE: Imaging protocol: Radiologic exam of the right elbow. Views: 1 or 2 views. COMPARISON: No relevant prior studies available. FINDINGS: Bones/joints: Oblique lucency through the medial humeral epicondyle. The alignment of the joints is anatomic and the joint spaces are maintained. There are no abnormal fat pads to suggest a joint effusion. Soft tissues: There is soft tissue swelling on the ventral aspect of the elbow. There are no radiopaque foreign bodies. IMPRESSION: Oblique lucency through the medial humeral epicondyle. This may represent a nondisplaced fracture versus artifact. Consider correlation with CT scan or immobilization and orthopedic follow-up, as clinically indicated. Dictated and Authenticated by: Armand Osorio MD. Ordering:MARILYN Briggs MD
--- NOTE | 2024-05-20 21:03 | DI.VRAD_ITS ---
PROCEDURE INFORMATION: Exam: XR Right Foot Exam date and time: 05/20/2024 7:27 PM Age: 64 years old Clinical indication: Other: Trauma, lateral foot pain TECHNIQUE: Imaging protocol: Radiologic exam of the right foot. Views: 3 or more views. COMPARISON: CR XR ANKLE RT COMPLETE 20/05/2024 19:24 FINDINGS: Bones/joints: Curvilinear fracture through the posterior calcaneus bone with sclerotic borders, of unknown acuity. This is best seen on the lateral view. The joints maintain anatomic alignment. There is a small Achilles enthesophyte. Soft tissues: Normal. IMPRESSION: Curvilinear fracture through the posterior calcaneus bone with sclerotic borders, of unknown acuity. Dictated and Authenticated by: Armand Osorio MD. Ordering:MARILYN Briggs MD
--- NOTE | 2024-05-20 21:07 | DI.VRAD_ITS ---
PROCEDURE INFORMATION: Exam: XR Right Ankle Exam date and time: 05/20/2024 7:24 PM Age: 64 years old Clinical indication: Other: Trauma, lateral ankle pain TECHNIQUE: Imaging protocol: Radiologic exam of the right ankle. Views: 3 or more views. COMPARISON: No relevant prior studies available. FINDINGS: Bones/joints: Curvilinear fracture through the posterior calcaneus bone with sclerotic borders, of unknown acuity, best seen on the lateral view. The alignment of the joints is anatomic and the ankle mortise is maintained. Soft tissues: No radiopaque foreign body is seen. IMPRESSION: 1. Curvilinear fracture through the posterior calcaneus bone with sclerotic borders, of unknown acuity. Dictated and Authenticated by: Armand Osorio MD. Ordering:MARILYN Briggs MD
--- NOTE | 2024-05-20 21:40 | DI.RAD_ITS ---
Exam(s) XR CLAVICLE RT EXAM: XR CLAVICLE RT CLINICAL HISTORY: trauma TECHNIQUE: 2D digital imaging was performed of the right clavicle. Two images were obtained. AP and axial views were obtained. COMPARISON: CT CT CHEST/ABD/PEL W from 05/20/[address] HEAD CERVICAL SPINE WO from 05/20/2024 FINDINGS: BONES: The patient's known fracture of the medial right clavicle is best appreciated on the CT scan o f the head and neck and CT scan of the chest from the same day. It is not well visualized on these p gisueppe films. No bony destructive lesion is seen. JOINTS: No dislocation present. Degenerative changes are seen at the acromioclavicular joint. SOFT TISSUE: Normal IMPRESSION: There is a fracture of the medial aspect of the right clavicle. It is best visualized on the CT exam ination from the same day. DATA REPOSITORY: RADIATION DOSE DELIVERED:
--- NOTE | 2024-05-20 22:11 | DI.VRAD_ITS ---
PROCEDURE INFORMATION: Exam: XR Right Clavicle, Complete Exam date and time: 05/20/2024 9:38 PM Age: 64 years old Clinical indication: Injury or trauma; Fall; Blunt trauma (contusions or hematomas); Shoulder; Right; Injury date: 05/20/24; Patient HX: Fell off ladder TECHNIQUE: Imaging protocol: Radiologic exam of the right clavicle. Complete exam. Views: Any number of views. COMPARISON: CR XR ELBOW RT COMPLETE 20/05/2024 19:31 FINDINGS: Bones/joints: Mildly displaced fracture of the medial right clavicle. The fracture is suboptimally visualized on this examination due to technical factors. There are mild degenerative changes of the right acromioclavicular joint. No dislocation. Soft tissues: Normal. IMPRESSION: 1. Mildly displaced acute fracture of the medial right clavicle, better visualized on the concomitant CT scan. 2. Mild degenerative changes of the right acromioclavicular joint. Dictated and Authenticated by: Armand Osorio MD. Ordering:MARILYN Briggs MD
--- NOTE | 2024-05-20 22:23 | W.ED.GENAD ---
Discharge Plan Disposition Patient Disposition: Home Discharge Details Clinical Impression: Accidental fall from ladder, Clavicle fracture, sternal end, Elbow injury, Calcaneus fracture, right Primary Care Provider: Oniel Perez ED Provider: Chester Carreon Home Meds and New Rx's Prescriptions: No Action polyethylene glycol 3350 17 gram/dose powder 238 g PO ONCE Qty: 238 0RF Rx Instructions: take per colonoscopy instructions clotrimazole 1 % cream 1 applic topical BID atorvastatin 40 mg tablet 40 mg PO QHS propranolol 120 mg capsule,extended release 24 hr 120 mg PO QHS methadone 10 mg/5 mL solution 115 mg PO DAILY capsaicin 0.1 % cream 1 applic topical BID Rx Instructions: do not wash area for at least 30 min after application albuterol sulfate [ProAir HFA] 90 mcg/actuation HFA aerosol inhaler 2 puff inhalation Q6H PRN lisinopril-hydrochlorothiazide 20-12.5 mg tablet 1 tab PO DAILY peg 3350-electrolytes [Golytely] 4,000 ML recon soln 4,000 ml PO ONCE Qty: 1 0RF Relistor 150 mg tablet 450 mg PO DAILY Qty: 9 0RF Discharge Instructions Instructions: Heel Fracture, Broken Collarbone ED, How to care for your cast Additional Instructions: It is very important that you remain nonweightbearing on your right lower extremity and use sling to help stabilize your collarbone fracture and potential elbow injury. Please continue to take [id number] acetaminophen as directed on packaging for pain and use the limited supply of narcotic provided for severe pain only. You may also apply ice to your collarbone to help with swelling Please return immediately to the emergency department for new or significant worsening of symptoms otherwise follow-up with orthopedist for follow-up care. Referrals: [facility] [Provider Group] (Call the office Wednesday morning for arrangement of follow-up appointment) Discharge Data Discharge Date/Time-TO BE ENTERED AT DEPARTURE: 05/20/24 23:19 HPI General Mode of arrival: ambulatory. Date/Time Provider Initiated Documentation: 05/20/24 18:24. Limitations to Documentation: no limitations. Information obtained by: patient, family and RN notes reviewed. History of Present Illness 64 year old M presents to the emergency department with the chief complaint of Fall from 8 foot ladder, described as severe, Quality is described as sharp, and is localized to the chest, right, upper extremity and lower extremity. Patient reports no radiation. Patient started experiencing this hour(s) (1) and it has been constant. No relieving factors improve symptom(s), No exacerbating factors reported . Patient did receive the following treatments prior to arrival, none Related Data Home Medications ?Medication ?Instructions ?Recorded ?Confirmed peg 3350-electrolytes 236 4,000 ml PO ONCE ##1 03/05/16 05/20/24 gram-22.74 gram-6.74 gram-5.86 gram solution (Golytely) albuterol sulfate 90 mcg/actuation 2 puff inhalation Q6H PRN 07/03/22 05/20/24 aerosol inhaler (ProAir HFA) atorvastatin 40 mg tablet 40 mg PO QHS 07/03/22 05/20/24 capsaicin 0.1 % topical cream 1 applic topical BID 07/03/22 05/20/24 clotrimazole 1 % topical cream 1 applic topical BID 07/03/22 05/20/24 methadone 10 mg/5 mL oral solution 115 mg PO DAILY 07/03/22 05/20/24 propranolol 120 mg capsule,24 120 mg PO QHS 07/03/22 05/20/24 hr,extended release polyethylene glycol 3350 17 238 g PO ONCE colonoscopy prep 01/28/23 05/20/24 gram/dose oral powder #238 grams methylnaltrexone 150 mg tablet 450 mg (3 x 150 mg) PO DAILY #9 06/30/23 05/20/24 (Relistor) tabs lisinopril 20 1 tab PO DAILY 05/02/24 05/20/24 mg-hydrochlorothiazide 12.5 mg tablet Previous Rx's ?Medication ?Instructions ?Recorded peg 3350-electrolytes 236 4,000 ml PO ONCE ##1 03/05/16 gram-22.74 gram-6.74 gram-5.86 gram solution (Golytely) polyethylene glycol 3350 17 238 g PO ONCE colonoscopy prep 01/28/23 gram/dose oral powder #238 grams methylnaltrexone 150 mg tablet 450 mg (3 x 150 mg) PO DAILY #9 06/30/23 (Relistor) tabs Allergies Allergy/AdvReac Type Severity Reaction Status Date / Time codeine (Codeine) AdvReac Nausea Unverified 05/20/24 20:00 General Stated Complaint: Orthopedic JOSIAH: 3 Review of Systems ENT Ears, Nose, Mouth, and Throat: Denies neck pain Cardiovascular Cardiovascular: Reports chest pain, Denies syncope, Denies lightheadedness and Denies dyspnea Respiratory Respiratory: Denies dyspnea Gastrointestinal Gastrointestinal: Denies abdominal pain, Denies nausea and Denies vomiting Musculoskeletal Musculoskeletal: Reports as per HPI, Denies back pain, Reports arthralgias and Denies neck pain Integumentary/Breasts Skin/Breast: Reports unusual bruising and Denies wounds Neurologic Neurologic: Denies syncope Exam [facility] Head: normal to inspection, no palpable skull fracture, normocephalic, atraumatic, no Guerrero's sign, no lacerations and no raccoon eyes Ears: hearing grossly normal bilaterally, external ears normal and TM's normal bilaterally General nose exam: external nose normal Face and sinus: normal facial exam Eyes General: appearance normal, both eyes and all related structures Neck Neck: full ROM, trachea midline, anterior neck swelling (Lower right side at clavicular sternal junction) and tender Chest Chest: normal palpation of entire chest wall and abnormal inspection of the chest swelling (Clavicular sternal junction) Resp Effort & Inspection: normal respiratory effort and able to speak in complete sentences Auscultation: clear to auscultation bilaterally Cardio Rate: regular rate Rhythm: regular rhythm Heart Sounds: S1 normal and S2 normal GI Inspection: normal to inspection Palpation: soft, not firm, no guarding, not rigid and nontender Back/Spine/Pelvis Back: no CVA tenderness Cervical Spine: normal cervical lordosis, No cervical spinal tenderness and No step off deformity Thoracic/Lumbar Spine: No thoracic spinal tenderness and No lumbar spinal tenderness Extrem General: normal exam except as noted Right upper extremity: elbow/forearm Details: tenderness Location: of the medial epicondyle and abrasion medial Right lower extremity: foot Details: tenderness Location: of the calcaneus and of the lateral foot, ecchymosis lateral and vascular exam Details: dorsalis pedis pulse present and posterior tibial pulse present Course Vital Signs Vital signs: Vital Signs Temperature 35.4 C L 05/20/24 18:17 Pulse 65 05/20/24 18:17 Respiratory Rate 15 05/20/24 18:17 Blood Pressure 96/54 L 05/20/24 18:17 Pulse Oximetry 97 05/20/24 18:17 Temperature 35.4 C L 05/20/24 18:17 Pulse 86 05/20/24 21:15 Pulse 83 05/20/24 21:20 Respiratory Rate 15 05/20/24 21:20 Respiratory Effort Normal 05/20/24 18:28 Blood Pressure 149/103 H 05/20/24 21:15 Blood Pressure Mean 118 05/20/24 21:15 Blood Pressure Position Sitting 05/20/24 18:17 Pulse Oximetry 97 05/20/24 18:17 Oxygen Delivery Method Room Air 05/20/24 18:17 Oxygen Flow Rate 0 05/20/24 18:17 Pain Level 8 05/20/24 18:17 Lab/Test Results Lab/Test Results: Laboratory Tests Range/Units 05/20/24 18:55 WBC (4.4-10.8) 10^3/uL 10.94 H RBC (4.36-5.78) 10^6/uL 4.07 L Hgb (13.5-17.5) g/dL 12.5 L Hct (40.0-50.0) % 38.3 L MCV (80-95) fL 94 MCH (27.0-33.0) pg 30.7 MCHC (32.0-36.0) % 32.6 RDW (11.8-14.1) % 13.0 Plt Count (130-400) 10^3/uL 271 MPV (8.0-11.0) fL 8.1 Immature Gran % % 0.4 Neutrophils % % 86.4 Lymphocytes % % 8.8 Monocytes % % 3.9 Eosinophils % % 0.2 Basophils % % 0.3 Nucleated RBC % (0.0-0.3) % 0.0 Absolute Neutrophils (1.2-6.7) 10^3/uL 9.45 H Absolute Lymphocytes (1.2-3.4) 10^3/uL 0.96 L Absolute Monocytes (0.1-0.8) 10^3/uL 0.43 Absolute Eosinophils (0.0-0.7) 10^3/uL 0.02 Absolute Basophils (0.0-0.2) 10^3/uL 0.03 Sodium (136-145) mmol/L 136 Potassium (3.5-5.1) mmol/L 3.6 Chloride (98-107) mmol/L 99 Carbon Dioxide (21.0-32.0) mmol/L 29.6 Anion Gap (3-11) mmol/L 7.4 BUN (7-18) mg/dL 17 Creatinine (0.70-1.30) mg/dL 1.0 Est GFR (CKD-EPI 2020) (mL/min/1.73m2) 84.05 Glucose (74-106) mg/dL 117 H Calcium (8.5-10.1) mg/dL 8.7 Magnesium (1.8-2.4) mg/dL 1.8 Total Bilirubin (0.2-1.0) mg/dL 0.40 AST (15-37) U/L 22 ALT (16-63) U/L 26 Alkaline Phosphatase (46-116) U/L 96 Total Protein (6.4-8.2) g/dL 7.2 Albumin (3.4-5.0) g/dL 3.7 Procedures Orthopedic Splinting/Casting Injury #1: Side: right Upper Extremity Injury Location: shoulder Upper Extremity Immobilizer: sling/shoulder immobilizer Injury #2: Side: right Lower Extremity Injury Location: foot Lower Extremity Immobilizer: posterior splint and stirrup splint Other Orthopedic Equipment: crutches Medical Decision Making Patient presenting to the emergency department for chief complaint of fall from ladder. Patient states he was sitting on top of an 8 foot ladder when the ladder slipped out from under him causing him to fall mainly on his right side. He states significant discomfort and inability to bear weight on his right foot and base of neck/collarbone discomfort also on the right side. Patient states mild medial tenderness to his elbow but has full range of motion. Physical exam shows significant deformity to the medial right clavicle with soft tissue swelling surrounding it. No tracheal deviation, clear lung sounds, no abdominal tenderness, no rib tenderness. Mild tenderness noted to palpation of the medial epicondyle of the right elbow but full range of motion intact with no painful range of motion. Patient does have significant lateral foot tenderness along with calcaneus tenderness. Exam otherwise noncontributory. Given mechanism of injury will perform trauma scans and plain film imaging of specific areas. Patient on methadone due to previous narcotic abuse and discussed this with patient and he requested IV acetaminophen which I feel is appropriate Reviewed patient's labs which does show a chronic but stable anemia otherwise labs are nondiagnostic. CT imaging reveals a medial clavicle fracture, questionable medial epicondyle lunacy with question of fracture and a calcaneus fracture. Patient placed in a sling for the elbow and clavicle and a bulky dressing along with posterior stirrup splinting applied to the right foot. Patient placed upon orthopedic follow-up list for follow-up after they review of imaging. Did discuss pain control with patient and he states that he has been clean and has not had any relapse or issue in the last 6 years and that the methadone has been beneficial. He did state mild improvement of discomfort after IV acetaminophen we had a thorough and direct conversation in regards to opiate use. After discussion of this I do feel that limited narcotics are appropriate given multiple fractures and injury. Patient states clear understanding of use along with continued use of [id number] nonnarcotic modalities. After discussion of diagnosis and plan of care patient has no further needs, questions, or concerns and states clear understanding to return to the emergency department for any worsening symptoms. This documentation was generated using [employer] dictation system, please disregard any oddities of phrase or misspellings. Imaging Data Radiologic Study: Imaging: X-Ray Radiologist's impression: Exam(s) XR CLAVICLE RT EXAM: XR CLAVICLE RT CLINICAL HISTORY: trauma TECHNIQUE: 2D digital imaging was performed of the right clavicle. Two images were obtained. AP and axial views were obtained. COMPARISON: CT CT CHEST/ABD/PEL W from 05/20/[address] HEAD CERVICAL SPINE WO from 05/20/2024 FINDINGS: BONES: The patient's known fracture of the medial right clavicle is best appreciated on the CT scan of the head and neck and CT scan of the chest from the same day. It is not well visualized on these plain films. No bony destructive lesion is seen. JOINTS: No dislocation present. Degenerative changes are seen at the acromioclavicular joint. SOFT TISSUE: Normal IMPRESSION: There is a fracture of the medial aspect of the right clavicle. It is best visualized on the CT examination from the same day. Radiologic Study #2: Imaging: CT Scan Radiologist's impression: Exam(s) a CT:CT chest/abd/pel w Exam(s) CT CHEST/ABD/PEL W EXAM: CT CHEST/ABD/PEL W CLINICAL HISTORY: trauma TECHNIQUE: Imaging Protocol: Axial computed tomography images with coronal and sagittal reformatted images were created and reviewed CONTRAST MATERIAL: Intravenous: Omnipaque 350 contrast volume:100 mL Oral: No COMPARISON: CT CT CHEST LUNG CANCER SCREEN from 07/28/2023 FINDINGS: CHEST: Tracheobronchial tree: Patent where visualized. Pulmonary parenchyma: No consolidation or dominant measurable mass. There is scarring in the lung bases. No focal consolidating infiltrates are present. Visualized thyroid gland: Unremarkable. Mediastinum and Flor: No dominant adenopathy or fluid collection. The esophagus is unremarkable. There is a large hiatal hernia. Pleura: No effusion or pneumothorax. Heart: The heart is not dilated. Coronary artery calcifications are present. No pericardial effusion. Pulmonary arteries: There is no pulmonary embolus to the segmental level. Aorta: Thoracic aorta non-dilated. No evidence of dissection. Atherosclerotic calcification is present. Lymph nodes: Within normal limits. Soft tissues: Mild gynecomastia. Bones:Within normal limits for the patient's age. There is an acute fracture of the medial right clavicle with associated hematoma involving the right sternocleidomastoid muscle. ABDOMEN: Liver: Normal density. No measurable mass. Portal, Superior Mesenteric, and Splenic Veins: Unremarkable. Gallbladder and Biliary Tract: No radiodense calculus or dilation. Pancreas: Normal density, no abnormal calcifications or inflammatory process. Spleen: Normal. Adrenals: No masses seen. Kidneys: Normal size, contour and axis. No radiodense stones or obstructive uropathy. No masses seen. Abdominal Aorta: Abdominal portion non-dilated. Atherosclerotic calcification is present. Bowel: There is diverticulosis of the colon without evidence of acute diverticulitis. No evidence of bowel obstruction or bowel wall thickening. No evidence of appendicitis. Peritoneal Cavity: No ascites, collection or mesenteric inflammatory response. No free air. Lymph Nodes: Within normal limits. Bones: Within normal limits for the patient's age. Soft Tissues: Unremarkable. PELVIS: Bladder: Symmetric distention, no gross wall thickening. Reproductive Organs: Unremarkable as visualized. Lymph Nodes: Within normal limits. Bones: Within normal limits. IMPRESSION: 1. No acute pulmonary process. 2. Comminuted fracture of the medial right clavicle with associated hematoma in the adjacent right sternocleidomastoid muscle. 3. No acute abdominal or pelvic organ injury. Radiologic Study #3: Imaging: X-Ray Radiologist's impression: Exam(s) XR ELBOW RT LIMITED EXAM: XR ELBOW RT LIMITED CLINICAL HISTORY: fall medial pain. TECHNIQUE: 2D digital imaging was performed of the left elbow. Two images were obtained. AP and lateral views were obtained. COMPARISON: No exams were available for comparison FINDINGS: BONES: There is an oblique lucency projected over the medial epicondyle. It does not appear to extend to the cortical surface and may represent an artifact. The bones are otherwise unremarkable. No bony destructive lesion is seen. JOINTS: The elbow is normally aligned. No joint effusion is seen. SOFT TISSUE: Normal. IMPRESSION: Lucency over the medial epicondyle of the humerus on the AP view only which likely reflects an artifact. Please correlate with the patient's physical exam. An oblique view was not obtained. A complete right elbow series or CT scan may be considered for further evaluation. Radiologic Study #4: Imaging: X-Ray Radiologist's impression: Exam(s) XR ANKLE RT COMPLETE XR FOOT RT COMPLETE EXAM: XR FOOT RT COMPLETE and XR ankle RT complete CLINICAL HISTORY: trauma, lateral foot pain. TECHNIQUE: 2D digital imaging was performed of the right ankle and foot. Six images were obtained. AP, oblique and lateral views were obtained. COMPARISON: CR,XR XR ANKLE RT COMPLETE from 05/20/2024 FINDINGS: BONES: There is a lucency seen through the posterior aspect of the calcaneus on the lateral view. The findings are suspicious for fracture of indeterminate acuity as there are sclerotic margins seen about the lucency. No bony destructive lesion is seen. No other evidence of a fracture or dislocation. JOINTS: No dislocation present. SOFT TISSUE: Normal. IMPRESSION: Lucency seen through the posterior calcaneus suspicious for fracture of indeterminate acuity. A CT scan of the calcaneus may be obtained for further evaluation. Radiologic Study #5: Imaging: CT Scan Radiologist's impression: Exam(s) a CT:CT head & cervical spine wo Exam(s) CT HEAD CERVICAL SPINE WO EXAM: CT HEAD CERVICAL SPINE WO CLINICAL HISTORY: trauma. TECHNIQUE: Imaging Protocol: Axial computed tomography images with coronal and sagittal reformatted images were created and reviewed COMPARISON: No exams were available for comparison FINDINGS: CT Head: Ventricles and Extra axial spaces: Normal in size and morphology for the patient's age. Hemorrhage: None. Cerebral parenchyma: There is no evidence of an acute territorial infarct. No mass effect is identified. Midline shift: None. Brainstem/Cerebellum: Normal. Calvarium: Normal. Visualized Paranasal sinuses/Mastoids: Clear. Soft Tissues: Unremarkable. CT Cervical Spine: Bones: There is an acute comminuted fracture of the medial aspect of the right clavicle. There is an associated hematoma involving the right sternocleidomastoid muscle distally. There are age-appropriate degenerative changes seen in the cervical spine. Soft Tissues: Unremarkable. Lung Apices: Clear. IMPRESSION: 1. No acute intracranial process. 2. No acute fracture or subluxation in the cervical spine. 3. Fracture of the medial right clavicle with associated soft tissue swelling/hematoma. Lab Data Lab results reviewed: Yes I reviewed the patient's lab results. Quality:SDOH Health Related Social Needs: No Data to Display PFSH All Active Problems Calcaneus fracture, right (Acute) Elbow injury (Acute) Clavicle fracture, sternal end (Acute) Accidental fall from ladder (Acute) Early satiety (Acute) Constipation (Acute) Paraesophageal hernia (Acute) Hypertension (Chronic) Anxiety disorder (Acute) Hypoalbuminemia (Acute) Balanitis (Acute) Medical History Alcohol dependence, in remission Smoker Colonic diverticular disease Opioid dependence Hyperlipidemia Generalized osteoarthritis of hand Social History Smoking/Tobacco Use Status: Current every day Smoking risk assessment performed?: Yes Alcohol Intake: current Alcohol Intake frequency: a few times a week Alcohol type: beer Drug use: Daily Substance use type: marijuana
--- NOTE | 2024-05-21 07:08 | NUR.NOTE ---
Access chart to get billing information for [facility] requisition. Nursing Note:
== END 2024-05-20 23:19 | disposition home or self-care (01) ==
PROVIDERS: Emergency Provider Nurse Practitioner Family; PCP Student in an Organized Health Care Education/Training Program
DX: S42.021A Displaced fracture of shaft of right clavicle, initial encounter for closed fracture (principal); S92.001A Unspecified fracture of right calcaneus, initial encounter for closed fracture; S59.801A Other specified injuries of right elbow, initial encounter; E78.5 Hyperlipidemia, unspecified; W11.XXXA Fall on and from ladder, initial encounter; Y92.89 Other specified places as the place of occurrence of the external cause; Y93.89 Activity, other specified
CPT/HCPCS: 29515; 74177; 80053; 96365; 99285; 70450; 71260; 72125; 73000; 73070; 73610; 73630; 83735; 85025; 99284; J0131; J3490

== ENCOUNTER 2024-05-30 08:38 | Outpatient (CLI) | payer MEDICAID, SELFPAY ==
--- NOTE | 2024-05-30 08:45 | DI.CT_ITS ---
Exam(s) CT LOWER EXTREMITY RT WO EXAM: CT LOWER EXTREMITY RT WO CLINICAL HISTORY: RIGHT CALCANEUS FX, S92.001A. TECHNIQUE: Imaging Protocol: Axial computed tomography images with coronal and sagittal reformatted images were created and reviewed. CONTRAST MATERIAL: Intravenous: Omnipaque 350 Contrast volume:structured data in ml Contrast route:I V - Oral: yes / no COMPARISON: CR,XR XR ANKLE RT COMPLETE from 05/20/2024 CR,XR XR FOOT RT COMPLETE from 05/20/2024 FINDINGS: OSSEOUS: There is a subacute appearing fracture in the calcaneus corresponding to what is described o n the recent plain films. The fracture extends from the superior cortex behind the subtalar joint tw o the inferior cortex. There is a separate minimally displaced fragment at the medial cortex level o f the fracture. Does not appear to be significant loss of height of the calcaneus. Calcaneocuboid j oint and talocalcaneal joint appear intact. No other foot fractures identified and Lisfranc joint is intact. IMPRESSION: Subacute appearing oblique calcaneus fracture as described above. RADIATION DOSE DELIVERED: 84.19mGy.cm Total DLP DATA REPOSITORY: All CT scans at this facility are submitted to the National Radiology Data Registry (NRDR) Dose Index Registry (DIR) with the [employer] (A[employer]). RADIATION OPTIMIZATION: All CT scans at this facility use at least one of these dose optimization te chniques: automated exposure control; mA and/or kV adjustment per patient size (includes targeted exa ms where dose is matched to clinical indication); or iterative reconstruction.
== END 2024-05-30 08:58 ==
LOC: DI 08:39
PROVIDERS: PCP Student in an Organized Health Care Education/Training Program; Visit Provider Student in an Organized Health Care Education/Training Program
DX: S42.021D Displaced fracture of shaft of right clavicle, subsequent encounter for fracture with routine healing (principal); M19.021 Primary osteoarthritis, right elbow; X58.XXXD Exposure to other specified factors, subsequent encounter
CPT/HCPCS: 73700

== ENCOUNTER 2024-05-30 15:51 | Outpatient (CLI) | payer MEDICAID, SELFPAY ==
--- NOTE | 2024-05-30 14:10 | DI.RAD_ITS ---
Exam(s) XR ELBOW RT COMPLETE EXAM: XR ELBOW RT COMPLETE CLINICAL HISTORY: F/U FRACTURE. TECHNIQUE: 2D digital imaging was performed. Three views. COMPARISON: CR,XR XR ELBOW RT LIMITED from 05/20/2024 FINDINGS: BONES: No acute fracture is present. No bony destructive lesion is seen. JOINTS: The elbow is normally aligned. No joint effusion is seen. Minimal degenerative changes. SOFT TISSUE: Normal. IMPRESSION: Minimal degenerative changes. DATA REPOSITORY: RADIATION DOSE DELIVERED:
== END 2024-05-30 15:52 | disposition home or self-care (01) ==
LOC: DIORS 15:52
PROVIDERS: PCP Student in an Organized Health Care Education/Training Program; Visit Provider Student in an Organized Health Care Education/Training Program
DX: S42.021D Displaced fracture of shaft of right clavicle, subsequent encounter for fracture with routine healing (principal); X58.XXXD Exposure to other specified factors, subsequent encounter
CPT/HCPCS: 73080

== ENCOUNTER 2025-05-01 12:46 | Outpatient (REF) | payer MEDICAID, SELFPAY ==
[2025-05-01 15:47] LABS: Abs Immature Grans 0.01 10^3/uL (0.0-0.06); HCT 39.0 % (40.0-50.0); HGB 12.6 g/dL (13.5-17.5); Immature Grans % 0.2 %; MCH 29.9 pg (27.0-33.0); MCHC 32.3 % (32.0-36.0); MCV 92 fL (80-95); MPV 8.9 fL (8.0-11.0); Platelet Count 319 10^3/uL (130-400); RBC 4.22 10^6/uL (4.36-5.78); RDW 13.0 % (11.8-14.1); RDW-SD 43.8 fL; WBC 4.17 10^3/uL (4.4-10.8)
[2025-05-01 16:23] LABS: ALT 19 U/L (16-63); AST 28 U/L (15-37); Albumin 3.8 g/dL (3.4-5.0); Alkaline Phosphatase 109 U/L (46-116); Anion Gap 7.1 mmol/L (3-11); BUN 12 mg/dL (7-18); Bilirubin, Total 0.4 mg/dL (0.2-1.0); CO2 28.9 mmol/L (21.0-32.0); Calcium 9.3 mg/dL (8.5-10.1); Calculated LDL 148 mg/dL (<100); Chloride 102 mmol/L (98-107); Cholesterol 236 mg/dL (<200); Estimated GFR 102.25 (mL/min/1.73m2); Glucose 97 mg/dL (74-106); HDL Cholesterol 73 mg/dL (>or=40); Potassium 4.9 mmol/L (3.5-5.1); Sodium 138 mmol/L (136-145); Total Protein 7.6 g/dL (6.4-8.2); Triglyceride 78 mg/dL (<150)
[2025-05-01 16:48] LABS: Hemoglobin A1C 5.5 % (<5.7)
== END 2025-05-01 12:47 | disposition home or self-care (01) ==
LOC: NCHCN 12:46
PROVIDERS: PCP Student in an Organized Health Care Education/Training Program; Visit Provider Student in an Organized Health Care Education/Training Program
DX: Z13.1 Encounter for screening for diabetes mellitus (principal); I10 Essential (primary) hypertension; E78.5 Hyperlipidemia, unspecified
CPT/HCPCS: 80053; 80061; 83036; 85025